=== PATIENT | female | born 1950 | race Caucasian/White ===

== ENCOUNTER 2018-05-27 12:10 | Outpatient (CLI) | payer OTHER ==
[~2018-05-27 12:10] MED LIST: FOSAMAX70 MG; PANADOL EXTRA500 MG; PRILOSEC20 MG; ULTRAM50 MG
== END 2018-05-27 12:12 | disposition home or self-care (01) ==
LOC: RAD 12:10
DX: M25.552 Pain in left hip (principal)

== ENCOUNTER 2018-09-05 09:02 | Outpatient (CLI) | payer OTHER | END 2018-09-05 09:53 | disposition home or self-care (01) | LOC: SONOGRAMA 09:02 | DX: N18.2 Chronic kidney disease, stage 2 (mild) (principal); I10 Essential (primary) hypertension; N95.0 Postmenopausal bleeding; Z85.528 Personal history of other malignant neoplasm of kidney ==

== ENCOUNTER 2019-04-25 10:31 | Outpatient (CLI) | payer OTHER | END 2019-04-25 10:42 | disposition home or self-care (01) | LOC: MAMO-SONO 10:31 | DX: Z12.31 Encounter for screening mammogram for malignant neoplasm of breast (principal); Z87.898 Personal history of other specified conditions; Z85.3 Personal history of malignant neoplasm of breast ==

== ENCOUNTER 2019-07-18 14:51 | Emergency (ER) | payer OTHER ==
[~2019-07-18] VITALS: Ht 157.5 cm; Wt 77.1 kg
[2019-07-18] MEDS ORDERED: ZANTAC 7575 MG (15:10)
[2019-07-18] MEDS ORDERED: TRAMADOL HCL100 M1 (15:10)
[2019-07-18] MEDS ORDERED: ALLEGRA ALLERG180 MG PO (17:02)
== END 2019-07-18 17:11 | disposition home or self-care (01) ==
LOC: ER 14:51
DX: R21 Rash and other nonspecific skin eruption (principal)

== ENCOUNTER 2019-11-03 10:32 | Outpatient (CLI) | payer OTHER ==
[~2019-11-03 10:32] MED LIST changes: +ALLEGRA ALLERG180 MG PO; +TRAMADOL HCL100 M1; +ZANTAC 7575 MG
== END 2019-11-03 10:46 | disposition home or self-care (01) ==
LOC: NUCLEAR 10:32
DX: M81.0 Age-related osteoporosis without current pathological fracture (principal)

== ENCOUNTER 2020-01-02 11:49 | Outpatient (CLI) | payer OTHER | END 2020-01-02 12:13 | disposition home or self-care (01) | LOC: SONOGRAMA 11:49 | DX: E04.2 Nontoxic multinodular goiter (principal) ==

== ENCOUNTER → 2020-07-02 | Outpatient (CLI) | payer OTHER | END | disposition home or self-care (01) | LOC: SONOGRAMA 11:02 | PROVIDERS: ATTEND Obstetrics & Gynecology Gynecologic Oncology | DX: R19.00 Intra-abdominal and pelvic swelling, mass and lump, unspecified site (principal) ==

== ENCOUNTER 2020-08-03 12:04 | Inpatient (IN) | payer OTHER ==
[~2020-08-03] VITALS: Ht 157.5 cm; Wt 79.4 kg
[2020-08-12] MEDS ORDERED: FOSAMAX PO (09:44)
[2020-08-19] MEDS ORDERED: FOSAMAX70 MG PO (08:50)
== END 2020-08-20 13:01 | DRG 743 ==
LOC: ADM 08-12 07:30 → EDSTATUS 08-12 07:30 → O/R 08-19 06:54 → OB/GYN 08-19 06:54
PROVIDERS: ADMIT Obstetrics & Gynecology Gynecologic Oncology; ATTEND Obstetrics & Gynecology Gynecologic Oncology
PROC: 0UT74ZZ Resection of Bilateral Fallopian Tubes, Percutaneous Endoscopic Approach (ICD-10-PCS; 2020-08-19)
PROC: 0UT24ZZ Resection of Bilateral Ovaries, Percutaneous Endoscopic Approach (ICD-10-PCS; 2020-08-19)
PROC: 0UT94ZZ Resection of Uterus, Percutaneous Endoscopic Approach (ICD-10-PCS; principal; 2020-08-19 16:30)
DX: D25.2 Subserosal leiomyoma of uterus (principal); N80.0 Endometriosis of uterus; N72 Inflammatory disease of cervix uteri; N83.292 Other ovarian cyst, left side; N83.291 Other ovarian cyst, right side; Z20.828 Contact with and (suspected) exposure to other viral communicable diseases

== ENCOUNTER → 2020-10-13 | Outpatient (CLI) | payer OTHER ==
[~2020-10-13] MED LIST changes: +FOSAMAX PO; +FOSAMAX70 MG PO
== END | disposition home or self-care (01) ==
LOC: SONOGRAMA 13:47
DX: M25.511 Pain in right shoulder (principal); M75.51 Bursitis of right shoulder; M65.811 Other synovitis and tenosynovitis, right shoulder

== ENCOUNTER → 2020-12-13 | Outpatient (CLI) | payer OTHER | END | disposition home or self-care (01) | LOC: SONOGRAMA 14:09 | PROVIDERS: ATTEND Internal Medicine Hematology & Oncology | DX: E04.2 Nontoxic multinodular goiter (principal); C50.411 Malignant neoplasm of upper-outer quadrant of right female breast; C64.1 Malignant neoplasm of right kidney, except renal pelvis; G47.33 Obstructive sleep apnea (adult) (pediatric); E03.8 Other specified hypothyroidism ==

== ENCOUNTER → 2020-12-16 10:07 | Outpatient (CLI) | payer OTHER | END | disposition home or self-care (01) | LOC: LAB 10:07 | PROVIDERS: ATTEND Internal Medicine Hematology & Oncology | DX: D50.8 Other iron deficiency anemias (principal); R79.89 Other specified abnormal findings of blood chemistry; I10 Essential (primary) hypertension; R74.02 Elevation of levels of lactic acid dehydrogenase [LDH]; K76.89 Other specified diseases of liver; E55.9 Vitamin D deficiency, unspecified; E03.8 Other specified hypothyroidism; E06.3 Autoimmune thyroiditis; C50.919 Malignant neoplasm of unspecified site of unspecified female breast; R97.8 Other abnormal tumor markers; C25.9 Malignant neoplasm of pancreas, unspecified; R97.0 Elevated carcinoembryonic antigen [CEA]; D51.1 Vitamin B12 deficiency anemia due to selective vitamin B12 malabsorption with proteinuria; D51.0 Vitamin B12 deficiency anemia due to intrinsic factor deficiency; C50.411 Malignant neoplasm of upper-outer quadrant of right female breast; C64.1 Malignant neoplasm of right kidney, except renal pelvis; G47.33 Obstructive sleep apnea (adult) (pediatric) ==

== ENCOUNTER 2021-01-12 10:20 | Outpatient (CLI) | payer OTHER | END 2021-01-12 10:24 | disposition home or self-care (01) | LOC: LAB 10:20 | PROVIDERS: ATTEND Internal Medicine Nephrology | DX: E11.21 Type 2 diabetes mellitus with diabetic nephropathy (principal); R80.8 Other proteinuria; I10 Essential (primary) hypertension; C50.919 Malignant neoplasm of unspecified site of unspecified female breast; I12.9 Hypertensive chronic kidney disease with stage 1 through stage 4 chronic kidney disease, or unspecified chronic kidney disease; Z68.30 Body mass index [BMI] 30.0-30.9, adult; E66.9 Obesity, unspecified; G47.33 Obstructive sleep apnea (adult) (pediatric); G47.36 Sleep related hypoventilation in conditions classified elsewhere; D37.1 Neoplasm of uncertain behavior of stomach; R19.5 Other fecal abnormalities; M79.7 Fibromyalgia; M54.17 Radiculopathy, lumbosacral region; M85.80 Other specified disorders of bone density and structure, unspecified site; M25.511 Pain in right shoulder; M75.51 Bursitis of right shoulder; M62.830 Muscle spasm of back; E55.9 Vitamin D deficiency, unspecified; E78.49 Other hyperlipidemia ==

== ENCOUNTER 2021-01-12 10:34 | Outpatient (CLI) | payer OTHER | END 2021-01-12 12:21 | disposition home or self-care (01) | LOC: MAMO-SONO 10:34 | DX: Z12.31 Encounter for screening mammogram for malignant neoplasm of breast (principal); N60.01 Solitary cyst of right breast; N64.59 Other signs and symptoms in breast ==

== ENCOUNTER 2021-04-25 08:17 | Outpatient (CLI) | payer OTHER | END 2021-04-25 08:20 | disposition home or self-care (01) | LOC: SONOGRAMA 08:17 | PROVIDERS: ATTEND Pathology Anatomic Pathology & Clinical Pathology | DX: E04.2 Nontoxic multinodular goiter (principal) ==

== ENCOUNTER → 2021-05-31 11:14 | Outpatient (CLI) | payer OTHER | END | disposition home or self-care (01) | LOC: LAB 11:14 | PROVIDERS: ATTEND Internal Medicine Hematology & Oncology | DX: D50.8 Other iron deficiency anemias (principal); R79.89 Other specified abnormal findings of blood chemistry; I10 Essential (primary) hypertension; R74.02 Elevation of levels of lactic acid dehydrogenase [LDH]; K76.89 Other specified diseases of liver; D51.8 Other vitamin B12 deficiency anemias; E06.3 Autoimmune thyroiditis; C50.411 Malignant neoplasm of upper-outer quadrant of right female breast; C64.1 Malignant neoplasm of right kidney, except renal pelvis; G47.33 Obstructive sleep apnea (adult) (pediatric); E04.2 Nontoxic multinodular goiter; D64.1 Secondary sideroblastic anemia due to disease; E78.89 Other lipoprotein metabolism disorders; N39.0 Urinary tract infection, site not specified ==

== ENCOUNTER 2021-06-02 09:15 | Outpatient (CLI) | payer OTHER | END 2021-06-02 09:16 | disposition home or self-care (01) | LOC: MAMO-SONO 09:15 | PROVIDERS: ATTEND Internal Medicine Hematology & Oncology | DX: I10 Essential (primary) hypertension (principal); C50.411 Malignant neoplasm of upper-outer quadrant of right female breast; C64.1 Malignant neoplasm of right kidney, except renal pelvis; G47.33 Obstructive sleep apnea (adult) (pediatric); E04.2 Nontoxic multinodular goiter ==

== ENCOUNTER 2021-08-01 08:15 | Outpatient (CLI) | payer OTHER | END 2021-08-01 14:22 | disposition home or self-care (01) | LOC: LAB 08:15 | PROVIDERS: ATTEND Internal Medicine Nephrology | DX: N18.2 Chronic kidney disease, stage 2 (mild) (principal); I10 Essential (primary) hypertension ==

== ENCOUNTER 2021-08-01 10:33 | Outpatient (CLI) | payer OTHER | END 2021-08-01 14:23 | disposition home or self-care (01) | LOC: RAD 10:33 | PROVIDERS: ATTEND General Practice | DX: G44.89 Other headache syndrome (principal); Z68.29 Body mass index [BMI] 29.0-29.9, adult; E04.2 Nontoxic multinodular goiter; I77.819 Aortic ectasia, unspecified site; G47.33 Obstructive sleep apnea (adult) (pediatric); K29.40 Chronic atrophic gastritis without bleeding; C50.411 Malignant neoplasm of upper-outer quadrant of right female breast; K76.0 Fatty (change of) liver, not elsewhere classified; M85.80 Other specified disorders of bone density and structure, unspecified site; I73.89 Other specified peripheral vascular diseases; C64.1 Malignant neoplasm of right kidney, except renal pelvis; N18.31 Chronic kidney disease, stage 3a; Z90.5 Acquired absence of kidney; E78.2 Mixed hyperlipidemia ==

== ENCOUNTER → 2021-10-03 10:17 | Outpatient (CLI) | payer OTHER | END | disposition home or self-care (01) | LOC: SONOGRAMA 10:17 | PROVIDERS: ATTEND General Practice | DX: M72.2 Plantar fascial fibromatosis (principal) ==

== ENCOUNTER 2021-12-29 10:58 | Outpatient (CLI) | payer OTHER | END 2021-12-29 11:15 | disposition home or self-care (01) | LOC: TOM 10:58 | PROVIDERS: ATTEND General Practice | DX: R10.2 Pelvic and perineal pain (principal); C64.1 Malignant neoplasm of right kidney, except renal pelvis; C50.411 Malignant neoplasm of upper-outer quadrant of right female breast ==

== ENCOUNTER 2022-01-24 06:26 | Outpatient (CLI) | payer OTHER | END 2022-01-24 07:00 | disposition home or self-care (01) | LOC: MRI 06:26 | PROVIDERS: ATTEND Anesthesiology | DX: M53.0 Cervicocranial syndrome (principal) | CPT/HCPCS: 72141 ==

== ENCOUNTER 2022-09-14 07:08 | Outpatient (CLI) | payer OTHER | END 2022-09-14 15:47 | disposition home or self-care (01) | LOC: MAMO-SONO 07:08 | PROVIDERS: ATTEND General Practice | DX: C50.411 Malignant neoplasm of upper-outer quadrant of right female breast (principal) ==

== ENCOUNTER 2023-02-16 12:53 | Outpatient (CLI) | payer OTHER | END 2023-02-16 13:00 | disposition home or self-care (01) | LOC: NUCLEAR 12:53 | PROVIDERS: ATTEND Internal Medicine Hematology & Oncology | DX: M81.0 Age-related osteoporosis without current pathological fracture (principal) ==

== ENCOUNTER 2023-09-17 10:28 | Outpatient (CLI) | payer OTHER | END 2023-09-17 10:37 | disposition home or self-care (01) | LOC: MAMO-SONO 10:28 | PROVIDERS: ATTEND Internal Medicine Hematology & Oncology | DX: C50.911 Malignant neoplasm of unspecified site of right female breast (principal) ==

== ENCOUNTER → 2023-10-04 | Outpatient (CLI) | payer OTHER | END | disposition home or self-care (01) | LOC: TOM 09:47 | PROVIDERS: ATTEND Internal Medicine Hematology & Oncology | DX: C50.911 Malignant neoplasm of unspecified site of right female breast (principal); C64.1 Malignant neoplasm of right kidney, except renal pelvis ==

== ENCOUNTER 2024-05-15 10:15 | Outpatient (CLI) | payer OTHER | END 2024-05-15 10:16 | disposition home or self-care (01) | LOC: NUCLEAR 10:15 | PROVIDERS: ATTEND Internal Medicine Hematology & Oncology | DX: I82.621 Acute embolism and thrombosis of deep veins of right upper extremity (principal); I82.401 Acute embolism and thrombosis of unspecified deep veins of right lower extremity ==

== ENCOUNTER 2024-06-06 17:10 | Emergency (ER) | payer OTHER ==
[~2024-06-06] VITALS: Ht 157.5 cm; Wt 77.1 kg
[2024-06-06 19:02] LABS: HEMATOCRIT 37.9 % (36.0-45.00); HEMOGLOBIN 12.9 g/dL (12.0-15.00); MEAN CELL VOLUME 85.3 fL (80.00-100.00); PLATELET COUNT 239 K/uL (150-450); RED BLOOD COUNT 4.44 M/uL (4.00-6.00); RED CELL DISTRIBUTION WIDTH 13.7 % (11.5-14.5)
[2024-06-06 19:23] LABS: ALBUMIN 3.7 gm/dL (3.4-5.0); BILIRUBIN TOTAL 0.34 mg/dL (0.3-1.2); CALCIUM 8.9 mg/dL (8.5-10.1); CREATININE SERUM 1.24 mg/dL (0.55-1.02); GFR 42.64; GLOBULINA 3.3 G/DL (2.4-3.5); POTASSIUM 4.18 mEq/L (3.5-5.1)
== END 2024-06-06 19:41 | disposition home or self-care (01) ==
LOC: ER 17:11
PROVIDERS: General Practice
DX: H11.32 Conjunctival hemorrhage, left eye (principal); Z85.89 Personal history of malignant neoplasm of other organs and systems; I10 Essential (primary) hypertension; M79.7 Fibromyalgia

== ENCOUNTER 2024-09-10 10:54 | Outpatient (CLI) | payer OTHER | END 2024-09-10 12:17 | disposition home or self-care (01) | LOC: MAMO-SONO 10:54 | PROVIDERS: ATTEND Internal Medicine Hematology & Oncology | DX: C50.911 Malignant neoplasm of unspecified site of right female breast (principal); Z12.31 Encounter for screening mammogram for malignant neoplasm of breast ==

== ENCOUNTER 2025-03-23 10:50 | Outpatient (CLI) | payer OTHER | END 2025-03-23 10:51 | disposition home or self-care (01) | LOC: NUCLEAR 10:50 | DX: M81.0 Age-related osteoporosis without current pathological fracture (principal) ==

== ENCOUNTER 2025-04-20 12:03 | Outpatient (CLI) | payer OTHER | END 2025-04-20 12:07 | disposition home or self-care (01) | LOC: SONOGRAMA 12:03 | DX: R10.84 Generalized abdominal pain (principal) ==

== ENCOUNTER → 2025-09-10 | Outpatient (CLI) | payer OTHER | END | disposition home or self-care (01) | LOC: TOM 06:27 | PROVIDERS: ATTEND Internal Medicine Hematology & Oncology | DX: C50.911 Malignant neoplasm of unspecified site of right female breast (principal); Z12.31 Encounter for screening mammogram for malignant neoplasm of breast ==